=== PATIENT | female | born 1955 | race Caucasian/White ===

== ENCOUNTER 2017-08-11 14:13 | Emergency (ER) | payer BC ==
[~2017-08-11] VITALS: Ht 162.6 cm; Wt 68.4 kg
[2017-08-11] MEDS ORDERED: TRAMADOL HCL50 MG PO (16:23)
[2017-08-11] MEDS ORDERED: MOTRIN600 MG PO (16:23)
[2017-08-11 16:33] VITALS: BP 135/74
== END 2017-08-11 16:42 | disposition home or self-care (01) ==
LOC: EME 14:13
DX: S29.011A Strain of muscle and tendon of front wall of thorax, initial encounter (principal); X58.XXXA Exposure to other specified factors, initial encounter; K21.9 Gastro-esophageal reflux disease without esophagitis; E78.5 Hyperlipidemia, unspecified; F17.200 Nicotine dependence, unspecified, uncomplicated
CPT/HCPCS: 71101; 99281; 99283; J1885